=== PATIENT | male | born 1995 | race African-American/Black ===

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

== ENCOUNTER 2017-05-16 05:20 | Emergency (ER) | payer SELFPAY ==
[2017-05-16 05:38] LABS: ABSOLUTE BASOPHILS # (AUTO) 0.1 10^3/uL (0.0-0.2); ABSOLUTE LYMPHOCYTES (AUTO) 1.8 10^3/uL (0.5-4.7); ABSOLUTE MONOCYTES (AUTO) 0.4 10^3/uL (0.1-1.4); ABSOLUTE NEUT (AUTO) 3.7 10^3/uL (1.7-8.2); BASOPHILS % (AUTO) 0.9 % (0-2); EOSINOPHILS % (AUTO) 0.4 % (0-6); HEMATOCRIT 45.2 % (37.9-51.0); HEMOGLOBIN 15.9 g/dL (13.5-17.0); HGB HCT DIFFERENCE 2.5; LYMPHOCYTES % (AUTO) 29.6 % (13-45); MEAN CORPUSCULAR HEMOGLOBIN 31.1 pg (27.0-33.4); MEAN CORPUSCULAR HGB CONC 35.2 g/dL (32.0-36.0); MEAN CORPUSCULAR VOLUME 88 fl (80-97); MONOCYTES % (AUTO) 7.1 % (3-13); RED BLOOD COUNT 5.11 10^6/uL (4.35-5.55); RED CELL DISTRIBUTION WIDTH 13.4 % (11.5-14.0)
[2017-05-16 05:44] LABS: ALANINE AMINOTRANSFERASE 35 U/L (10-40); ALBUMIN 4.8 g/dL (3.7-5.6); ALKALINE PHOSPHATASE 57 U/L (65-260); ANION GAP 10 (5-19); ASPARTATE AMINO TRANSFERASE 27 U/L (10-45); BILIRUBIN,DIRECT 0.3 mg/dL (0.0-0.4); BILIRUBIN,TOTAL 1.7 mg/dL (0.2-1.3); BLOOD UREA NITROGEN 9 mg/dL (7-20); CALCIUM 10.2 mg/dL (8.4-10.2); CARBON DIOXIDE 27 mmol/L (22-30); CHLORIDE 106 mmol/L (98-107); CREATININE RESULT 0.98 mg/dL (0.52-1.25); GLUCOSE 119 mg/dL (75-110); POTASSIUM 3.8 mmol/L (3.6-5.0); SODIUM 143.2 mmol/L (137-145); TOTAL PROTEIN 7.7 g/dL (6.3-8.2)
[2017-05-16] MEDS: NORMAL SALINE 1000 ML 1,000 ML IV PRN ×2 (05:45→09:05)
[2017-05-16 05:46] LABS: ALCOHOL < 10 mg/dL (NONE DETECTED)
--- NOTE | 2017-05-16 05:48 | ER Document Report ---
Doctor's Note Notes: 05/16/17 05:46 I performed a quick triage evaluation of the patient. Patient is a 4-year-old male who presents after overdosing on tramadol and NyQuil. Report is that he took a bottle of NyQuil and took tramadol. There is a empty tramadol bottle is brought with him. The bottle initially at 30 tablets. Unclear exactly how many were in the bottle when he took them. Patient will not give any further information. Patient is somnolent but easily arousable and will talk to me but does not give any further information. Patient is protecting his airway well. Vital signs are currently stable. Blood work has been ordered. Dictation of this chart was performed using voice recognition software; therefore, there may be some unintended grammatical errors.
--- NOTE | 2017-05-16 06:38 | ER Document Report ---
ED Psych Disorder / Suicide - General Mode of Arrival: Ambulatory Information source: Patient TRAVEL OUTSIDE OF THE U.S. IN LAST 30 DAYS: No <CARMINE ALMAGUER - Last Filed: 05/16/17 11:10> <ROSA BARRY - Last Filed: 05/16/17 14:31> - General Chief Complaint: Overdose Stated Complaint: POSSIBLE OVERDOSE Time Seen by Provider: 05/16/17 06:21 Notes: Patient is a 21-year-old male who presents to the emergency department today with complaints of a suicidal attempt prior to arrival. Patient's grandma states the patient took a full 12 ounce bottle of liquid NyQuil prior to arrival. Grandma mentions that he may have taken tramadol as well as there is a prescription for x30 tramadol 50 mg at bedside that is empty. Patient states that this was his ex-girlfriend's and that he did not take any, stating that it has been empty for a week or more. Patient states he took the NyQuil around 0400 this morning and he states that the reason for taking this was "I just want to be gone". (CARMINE ALMAGUER) - Related Data Allergies/Adverse Reactions: Penicillins Allergy (Verified 05/16/17 07:16) bleach Allergy (Uncoded 04/07/17 15:54) Past Medical History - General Information source: Patient - Social History Smoking Status: Never Smoker Cigarette use (# per day): No Frequency of alcohol use: None Drug Abuse: Marijuana Lives with: Family Family History: Reviewed & Not Pertinent Patient has suicidal ideation: Yes Patient has homicidal ideation: No Psychiatric Medical History: Reports: Hx Depression Past Surgical History: Reports: Other - Facial plastic surgery - Immunizations Immunizations up to date: Yes Hx Diphtheria, Pertussis, Tetanus Vaccination: Yes <CARMINE ALMAGUER - Last Filed: 05/16/17 11:10> Review of Systems - Review of Systems Constitutional: See HPI, Other - complains of being excessively tired EENT: No symptoms reported Cardiovascular: See HPI, Lightheaded Respiratory: No symptoms reported Gastrointestinal: See HPI, Nausea Genitourinary: No symptoms reported Male Genitourinary: No symptoms reported Musculoskeletal: No symptoms reported Skin: No symptoms reported Hematologic/Lymphatic: No symptoms reported Neurological/Psychological: No symptoms reported -: Yes All other systems reviewed and negative <CARMINE ALMAGUER - Last Filed: 05/16/17 11:10> Physical Exam <CARMINE ALMAGUER - Last Filed: 05/16/17 11:10> <ROSA BARRY - Last Filed: 05/16/17 14:31> - Vital signs Vitals: Resp 18 05/16/17 05:28 - Notes Notes: Physical Exam: General: Alert, appears well. HEENT: Normocephalic. Atraumatic. PERRL. Extraocular movements intact. Oropharynx clear. Dry mucous membranes. Neck: Supple. Non-tender. Respiratory: No respiratory distress. Clear and equal breath sounds bilaterally. Cardiovascular: Regular rate and rhythm. Abdominal: Normal Inspection. Non-tender. No distension. Normal Bowel Sounds. Back: Non-tender. No deformity or step off. Extremities: Moves all four extremities. Upper extremities: Normal inspection. Normal ROM. Lower extremities: Tracking device on left ankle. No edema. Normal ROM. Neurological: Normal cognition. AAOx4. Normal speech. Psychological: Flat affect. Normal Mood. Skin: Warm. Dry. Normal color. (CARMINE ALMAGUER) Course - Laboratory Result Diagrams: 05/16/17 05:20 05/16/17 07:20 <CARMINE ALMAGUER - Last Filed: 05/16/17 11:10> - Laboratory Result Diagrams: 05/16/17 05:20 05/16/17 07:20 <ROSA BARRY - Last Filed: 05/16/17 14:31> - Re-evaluation Re-evalutation: 05/16/17 11:29 Patient was discussed with poison control regarding his Tylenol level. Initial level was 15, then 31, then 26. Patient and grandmother at adamant that the patient took the bottle of NyQuil at 3:30 in the morning. He has a text message which is showing this as proof. Per poison control, if the patient's story is reliable, there is no need for continuing medical follow-up in the patient can be medically cleared. LFTs have been normal 3. Patient will be seen by mental health for further evaluation of why he overdosed. 05/16/17 14:28 Patient has been seen by psychiatric services. Patient does not have any suicidal or homicidal ideation at this time. Concern for possible undiagnosed bipolar disorder. Patient and grandmother will contract for safety. Patient is medically and psychiatrically cleared. Involuntary commitment paperwork will be rescinded. Stable for discharge. Follow-up with [facility]. (ROSA BARRY) - Vital Signs Vital signs: Temp Pulse Resp BP Pulse Ox 97.8 F 17 136/97 H 98 05/16/17 05:42 05/16/17 13:01 05/16/17 13:01 05/16/17 13:01 - Laboratory Laboratory results interpreted by me: 05/16/17 05/16/17 05/16/17 05:20 06:25 07:20 Chloride 110 H Glucose 119 H Total Bilirubin 1.7 H 1.6 H Alkaline Phosphatase 57 L 49 L Total Protein Albumin Urine Ketones TRACE H Urine Blood SMALL H Salicylates < 1.0 L Acetaminophen 31 H 05/16/17 09:58 Chloride Glucose Total Bilirubin 1.5 H Alkaline Phosphatase 45 L Total Protein 6.0 L Albumin 3.6 L Urine Ketones Urine Blood Salicylates Acetaminophen Critical Care Note - Critical Care Note Total time excluding time spent on procedures (mins): 90 - Evaluation and management of overdose, suicidal ideation, multiple evaluations, consultation with poison control, consultation with mental health, multiple re-evaluations, counseling of patient and family <ROSA BARRY - Last Filed: 05/16/17 14:31> Discharge <CARMINE ALMAGUER - Last Filed: 05/16/17 11:10> <ROSA BARRY - Last Filed: 05/16/17 14:31> - Discharge Clinical Impression: Overdose Qualifiers: Encounter type: initial encounter Injury intent: intentional self-harm Qualified Code(s): T50.902A - Poisoning by unspecified drugs, medicaments and biological substances, intentional self-harm, initial encounter Depression Qualifiers: Depression Type: unspecified Qualified Code(s): F32.9 - Major depressive disorder, single episode, unspecified Condition: Stable Disposition: HOME, SELF-CARE Instructions: Depression ([facility]), Instructions for Home Care Following a Drug Overdose ([facility]) Additional Instructions: Please follow-up with the counselor as directed. Please return if you have any further concerns. Prescriptions: Benztropine Mesylate 1 mg PO DAILY #7 tablet Olanzapine [Zyprexa 5 mg Tablet] 5 mg PO Q12 #14 tablet Referrals: [facility] [Outside] - Follow up in 3-5 days Scribe Attestation: 05/16/17 14:31 I personally performed the services described in the documentation, reviewed and edited the documentation which was dictated to the scribe in my presence, and it accurately records my words and actions. (ROSA BARRY) Scribe Documentation - Scribe Written by [employer]:: Kandy Pak, 05/16/2017 0712 acting as scribe for :: Cecilia <CARMINE ALMAGUER - Last Filed: 05/16/17 11:10>
[2017-05-16 06:52] LABS: APPEARANCE,URINE CLEAR; BILIRUBIN,URINE NEGATIVE (NEGATIVE); GLUCOSE, URINE NEGATIVE (NEGATIVE); KETONES,URINE TRACE mg/dL (NEGATIVE); LEUKOCYTE ESTERASE,URINE NEGATIVE (NEGATIVE); NITRITE,URINE NEGATIVE (NEGATIVE); PROTEIN,URINE NEGATIVE (NEGATIVE); URINE SPECIFIC GRAVITY 1.017; UROBILINOGEN,URINE NEGATIVE mg/dL (<2.0)
[2017-05-16 07:11] LABS: URINE BARBITURATES SCREEN NEGATIVE; URINE METHADONE SCREEN NEGATIVE; URINE OPIATES LOW NEGATIVE; URINE PHENCYCLIDINE SCREEN NEGATIVE
--- NOTE | 2017-05-16 07:36 | EKG REPORT ---
SEVERITY:- NORMAL ECG - SINUS RHYTHM : Confirmed by: Eric Hogan 16-May-2017 07:35:13
[2017-05-16 07:58] LABS: ALANINE AMINOTRANSFERASE 36 U/L (10-40); ALBUMIN 4.3 g/dL (3.7-5.6); ALKALINE PHOSPHATASE 49 U/L (65-260); ANION GAP 12 (5-19); ASPARTATE AMINO TRANSFERASE 25 U/L (10-45); BILIRUBIN,DIRECT 0.3 mg/dL (0.0-0.4); BILIRUBIN,TOTAL 1.6 mg/dL (0.2-1.3); BLOOD UREA NITROGEN 7 mg/dL (7-20); CALCIUM 9.7 mg/dL (8.4-10.2); CARBON DIOXIDE 23 mmol/L (22-30); CHLORIDE 110 mmol/L (98-107); CREATININE RESULT 0.81 mg/dL (0.52-1.25); GLUCOSE 103 mg/dL (75-110); SODIUM 144.7 mmol/L (137-145)
--- NOTE | 2017-05-16 10:04 | PSYCHOLOGICAL NOTE ---
Psych Note - Psych Note Psych Note: pt brought in per ems for drinking entire bottle of nyquil and an unknown quanity of tramadol. grandmother states issues with girlfriend. grandmother states pt has not done this before. grandmother notes this was intentional. pt is responsive to pain but will at times open eyes and ask for girlfriend. pt has a house arrest anklet on. pt on monitor. grandmother notes pt smoked marijuanna today Patient disclosed that he arrived to [facility] via EMS however disclosed that he does not remember arriving. Patient does report he knows that he attempted to kill himself. Patient reports that he "drank a whole bottle of NyQuil but that it was not enough... Clearly." Patient states that he "would rather be right now because she still will not talk to me." He reports that his girlfriend broke up with him because "I messed up... I cheated on her... I just want to fix it... There is no reason to live, I cannot fix it." He reports a history of cutting when he was 15 years old however he did stop and has not cut since. Patient has no history of suicide attempts. He does have an IEP through his school that has identified with emotional disorder however does not receive any psychiatric services. Patient is semi-alert and orientated to person, place, time and circumstance. Mood is dysphoric with flat affect. Patient endorses suicidal ideation with attempt. Patient drank a bottle of NyQuil and discloses being upset that did not work. Patient denies homicidal ideation. Patient denies auditory visual hallucinations. Delusions are absent and behaviors congruent with intact reality based presentation i.e. organized, linear, rational thinking. Eye contact is poor. Conversational speech was low and difficult to hear at times. Intellectual abilities appear to be within the average range. Attention and concentration are fair. Insight, judgment, impulse control are poor. 311 (F32.9) unspecified depressive disorder V15.59 (Z91.5) personal history of cutting; 5 years previous no new events Impression\\plan: Patient is recommended for IVC. Patient attempted suicide by drinking a bottle of NyQuil. Patient continues to state that he is upset that it did not work that he would rather be . Patient is a danger to himself. He is currently not medically cleared; patient will be reevaluated. Dr. Segura was consulted and the care and management of this patient; attending physician is agreement with her conditions and disposition.
[2017-05-16 10:29] LABS: ALANINE AMINOTRANSFERASE 36 U/L (10-40); ALBUMIN 3.6 g/dL (3.7-5.6); ALKALINE PHOSPHATASE 45 U/L (65-260); ASPARTATE AMINO TRANSFERASE 21 U/L (10-45); BILIRUBIN,DIRECT 0.2 mg/dL (0.0-0.4); BILIRUBIN,TOTAL 1.5 mg/dL (0.2-1.3)
--- NOTE | 2017-05-16 13:53 | ER Document Report ---
Doctor's Note Notes: 05/16/17 13:52 Rounds: Chart reviewed and patient interviewed earlier this morning. Easily awakens. Vital signs are all normal. Lab studies are essentially normal. Patient appears to be medically stable for transfer or discharge. Ana Ivey MD
[2017-05-16 14:38] VITALS: BP 119/57
== END 2017-05-16 14:50 | disposition home or self-care (01) ==
LOC: ER 05:20
DX: T48.4X2A Poisoning by expectorants, intentional self-harm, initial encounter (principal); R42 Dizziness and giddiness; R11.0 Nausea; R53.83 Other fatigue; F32.9 Major depressive disorder, single episode, unspecified; Z88.0 Allergy status to penicillin; Z91.048 Other nonmedicinal substance allergy status
CPT/HCPCS: 93005; 99291; 99292; 96360; 36415; 80307 ×4; 85025; 80076; 80053; 81001; 93010; J7030

== ENCOUNTER 2017-05-19 18:54 | Emergency (ER) | payer SELFPAY ==
--- NOTE | 2017-05-19 19:46 | ER Document Report ---
ED Medical Screen (RME) - General Chief Complaint: Head Injury with LOC Stated Complaint: FALL/HEAD INJURY Time Seen by Provider: 05/19/17 19:41 Notes: 21-year-old male patient reports he is playing basketball, went up to 100 on the ball to short gut and on room swelling under fell down and struck his occipital skull on concrete with loss of consciousness. States he has been in and out of consciousness. Has abrasion possible laceration. He was here 3 days ago on IVC for overdose suicidal ideation and discharged on Zyprexa. I have greeted and performed a rapid initial assessment of this patient. A comprehensive ED assessment and evaluation of the patient, analysis of test results and completion of the medical decision making process will be conducted by additional ED providers. TRAVEL OUTSIDE OF THE [place]. IN LAST 30 DAYS: No - Related Data Allergies/Adverse Reactions: Penicillins Allergy (Verified 05/19/17 19:41) bleach Allergy (Uncoded 05/19/17 18:56) Home Medications: Current Home Medications No Home Medications 05/19/17 [History] Past Medical History Renal/ Medical History: Denies: Hx Peritoneal Dialysis Psychiatric Medical History: Reports: Hx Depression Past Surgical History: Reports: Other - Facial plastic surgery - Immunizations Immunizations up to date: Yes Hx Diphtheria, Pertussis, Tetanus Vaccination: Yes Physical Exam - Vital signs Vitals: Temp Pulse Resp BP Pulse Ox 98.8 F 65 16 130/79 H 98 05/19/17 19:26 05/19/17 19:26 05/19/17 19:26 05/19/17 19:26 05/19/17 19:26 Course - Vital Signs Vital signs: Temp Pulse Resp BP Pulse Ox 98.8 F 65 16 130/79 H 98 05/19/17 19:26 05/19/17 19:26 05/19/17 19:26 05/19/17 19:26 05/19/17 19:26
--- NOTE | 2017-05-19 20:10 | RADIOLOGY REPORT (SQ) ---
EXAM DESCRIPTION: CT HEAD WITHOUT COMPLETED DATE/TIME: 05/19/2017 7:53 pm REASON FOR STUDY: Hit head on concrete with LOC COMPARISON: None. TECHNIQUE: Axial images acquired through the brain without intravenous contrast. Images reviewed wi th bone, brain and subdural windows. Images stored on PACS. All CT scanners at this facility use dose modulation, iterative reconstruction, and/or weight based d osing when appropriate to reduce radiation dose to as low as reasonably achievable (ALARA). [facility]: Dose Right [facility]: CareDose [facility]: Dose Right [facility]: Teradose 4D [facility]: Smart [employer] RADIATION DOSE: CT Rad equipment meets quality standard of care and radiation dose reduction techniq ues were employed. CTDIvol: 64.6 mGy. DLP: 1292 mGy-cm. mGy. LIMITATIONS: None. FINDINGS: VENTRICLES: Normal size and contour. CEREBRUM: No masses. Linear density in the right middle cranial fossa is probably an incidental prom inent draining vein. No suggestion of hemorrhage. No midline shift. No evidence for acute infarcti on. Normal boudreaux/white matter differentiation. No areas of low density in the white matter. CEREBELLUM: No masses. No hemorrhage. No alteration of density. No evidence for acute infarction. EXTRAAXIAL SPACES: No fluid collections. No masses. ORBITS AND GLOBE: No intra- or extraconal masses. Normal contour of globe without masses. CALVARIUM: No fracture. PARANASAL SINUSES: No fluid or mucosal thickening. SOFT TISSUES: Mild soft tissue swelling over the vertex of the scalp posteriorly. Presumably related to direct trauma. No significant drainable hematoma or foreign body. OTHER: No other significant finding. IMPRESSION: No acute intracranial abnormality. EVIDENCE OF ACUTE STROKE: NO. COMMENT: Quality ID # [id number]: Final reports with documentation of one or more dose reduction techniques (e.g., Automated exposure control, adjustment of the mA and/or kV according to patient size, use of iterative reconstruction technique) TECHNICAL DOCUMENTATION: JOB ID: [id number] [employer]- All Rights Reserved
--- NOTE | 2017-05-19 20:47 | ER Document Report ---
ED General - General Chief Complaint: Head Injury with LOC Stated Complaint: FALL/HEAD INJURY Time Seen by Provider: 05/19/17 19:41 Mode of Arrival: Ambulatory Information source: Patient Notes: 21-year-old male who was playing basketball and fell striking the back of his head just prior to arrival presents with complaints of abrasion. Patient denies any neurological deficits however initial complaint noted loss of consciousness with intermittent confusion but patient and girlfriend notes that symptoms have since resolved TRAVEL OUTSIDE OF THE [place]. IN LAST 30 DAYS: No - HPI Onset: Other - 5:00 Onset/Duration: Sudden Quality of pain: Achy Severity: Mild Pain Level: 1 Associated symptoms: Other Exacerbated by: Denies Relieved by: Denies Similar symptoms previously: No Recently seen / treated by doctor: Yes - Related Data Allergies/Adverse Reactions: Penicillins Allergy (Verified 05/19/17 19:41) bleach Allergy (Uncoded 05/19/17 18:56) Home Medications: Current Home Medications No Home Medications 05/19/17 [History] Past Medical History - Social History Smoking Status: Never Smoker Cigarette use (# per day): No Chew tobacco use (# tins/day): No Smoking Education Provided: No Family History: Reviewed & Not Pertinent Patient has suicidal ideation: No Patient has homicidal ideation: No Renal/ Medical History: Denies: Hx Peritoneal Dialysis Psychiatric Medical History: Reports: Hx Depression Past Surgical History: Reports: Other - Facial plastic surgery - Immunizations Immunizations up to date: Yes Hx Diphtheria, Pertussis, Tetanus Vaccination: Yes Review of Systems - Review of Systems Notes: REVIEW OF SYSTEMS: CONSTITUTIONAL : Denies fever, chills, or sweats. Denies recent illness. EENT: Denies eye, ear, throat, or mouth pain or symptoms. Denies nasal or sinus congestion or discharge. Denies throat, tongue, or mouth swelling or difficulty swallowing. CARDIOVASCULAR: Denies chest pain. Denies palpitations or racing or irregular heart beat. Denies ankle edema. RESPIRATORY: Denies cough, cold, or chest congestion. Denies shortness of breath, difficulty breathing, or wheezing. GASTROINTESTINAL: Denies abdominal pain or distention. Denies nausea, vomiting , or diarrhea. Denies blood in vomitus, stools, or per rectum. Denies black, tarry stools. Denies constipation. GENITOURINARY: Denies difficulty urinating, painful urination, burning, frequency, blood in urine, or discharge. MUSCULOSKELETAL: Denies back or neck pain or stiffness. Denies joint pain or swelling. SKIN: bleeding from scalp HEMATOLOGIC : Denies easy bruising or bleeding. LYMPHATIC: Denies swollen, enlarged glands. NEUROLOGICAL: Initially admitted to loss of consciousness and going in and out of consciousness currently asymptomatic, admits ot head injury PSYCHIATRIC: Denies anxiety or stress. Denies depression, suicidal ideation, or homicidal ideation. ALL OTHER SYSTEMS REVIEWED AND NEGATIVE. Dictation was performed using [employer] voice recognition software PHYSICAL EXAMINATION: GENERAL: Well-appearing, well-nourished and in no acute distress. HEAD: mid occipital EYES: Pupils equal round and reactive to light, extraocular movements intact, sclera anicteric, conjunctiva are normal. ENT: Nares patent, oropharynx clear without exudates. Moist mucous membranes. NECK: Normal range of motion, supple without lymphadenopathy LUNGS: Breath sounds clear to auscultation bilaterally and equal. No wheezes rales or rhonchi. HEART: Regular rate and rhythm without murmurs ABDOMEN: Soft, nontender, nondistended abdomen. No guarding, no rebound. No masses appreciated. Musculoskeletal: Normal range of motion, no pitting or edema. No cyanosis. NEUROLOGICAL: Cranial nerves grossly intact. Normal speech, normal gait. Normal sensory, motor exams PSYCH: Normal mood, normal affect. SKIN: Warm, Dry, normal turgor, no rashes or lesions noted. Physical Exam - Vital signs Vitals: Temp Pulse Resp BP Pulse Ox 98.8 F 65 16 130/79 H 98 05/19/17 19:26 05/19/17 19:26 05/19/17 19:26 05/19/17 19:26 05/19/17 19:26 Course - Vital Signs Vital signs: Temp Pulse Resp BP Pulse Ox 98.8 F 65 16 130/79 H 98 05/19/17 19:26 05/19/17 19:26 05/19/17 19:26 05/19/17 19:26 05/19/17 19:26 Discharge - Discharge Clinical Impression: Head injury due to trauma, Scalp abrasion Condition: Stable Disposition: HOME, SELF-CARE Instructions: Abrasions ([facility]), Concussion ([facility]) Additional Instructions: Follow up with your physician tomorrow for further care or return to the ED IMMEDIATELY if symptoms worsen or new concerns occur. If you cannot afford to follow up with your primary care physician a list of low cost clinics have been provided at the end of your discharge papers as well. Forms: Return to Work
[2017-05-19] MEDS ORDERED: ACETAMINOPHEN 325 MG TABLET PO ONE (21:08)
[2017-05-19 21:16] VITALS: BP 128/91
== END 2017-05-19 21:14 | disposition home or self-care (01) ==
LOC: ER 18:54
DX: S06.9X9A Unspecified intracranial injury with loss of consciousness of unspecified duration, initial encounter (principal); W19.XXXA Unspecified fall, initial encounter; Y93.67 Activity, basketball; Z88.0 Allergy status to penicillin; Z91.048 Other nonmedicinal substance allergy status
CPT/HCPCS: 70450; 99284

== ENCOUNTER 2017-08-16 14:37 | Emergency (ER) | payer SELFPAY ==
[2017-08-16 14:42] VITALS: BP 131/77
[2017-08-16] MEDS ORDERED: ACETAMINOPHEN 325 MG TABLET PO ONE (14:53)
[2017-08-16] MEDS ORDERED: ONDANSETRON 4 MG TAB.RAPDIS PO ONE (14:53)
[2017-08-16] MEDS ORDERED: DEXAMETHASONE SOD PHOS INJ 10 MG/1 ML VIAL IM ONE (14:55)
--- NOTE | 2017-08-16 14:56 | ER Document Report ---
HPI - HPI Pain Level: 4 Notes: Patient is a 21-year-old male with no significant past medical history who presents to the ED complaining of feverish, sore throat, nausea, and vomiting 2 days. Patient states that he vomited 1-2 times yesterday and twice this morning because of the nausea. Patient states that he did take aspirin about an hour before he came. He is otherwise eating and drinking without any difficulties, but does have a decreased p.o. intake due to discomfort with swallowing. He is urinating normally and having normal bowel movements. Denies any drug allergies. Patient does admit to smoking but denies IV drug use. No other concerns or complaints today. Denies any headache, neck pain, URI, chest pain, palpitations, syncope, cough, shortness of breath, wheeze, dyspnea, abdominal pain, diarrhea, urinary retention, dysuria, hematuria, loss of control of bowel or bladder, numbness/tingling, saddle anesthesia, muscle paralysis/weakness, or rash. - ROS Systems Reviewed and Negative: Yes All other systems reviewed and negative Past Medical History - Social History Smoking Status: Current Every Day Smoker Family History: Reviewed & Not Pertinent Renal/ Medical History: Denies: Hx Peritoneal Dialysis Psychiatric Medical History: Reports: Hx Depression Past Surgical History: Reports: Other - Facial plastic surgery - Immunizations Immunizations up to date: Yes Hx Diphtheria, Pertussis, Tetanus Vaccination: Yes Vertical Provider Document - CONSTITUTIONAL Agree With Documented VS: Yes Notes: PHYSICAL EXAMINATION: GENERAL: Well-appearing, well-nourished and in no acute distress. A&Ox4. Answers questions appropriately. Moves comfortably w/o notable distress HEAD: Atraumatic, normocephalic. EYES: Pupils equal round and reactive to light, extraocular movements intact, sclera anicteric, conjunctiva are normal. ENT: EAC clear b/l. TM's intact b/l without erythema, fluid, or perforation. Nares patent and without discharge. oropharynx mild erythema without exudates. 2+ tonsilar hypertrophy with erythema and exudate. No palatine shift. Uvula midline. No tongue protrusion. No drooling, hoarseness, or airway compromise. Moist mucous membranes. No sinus tenderness. NECK: Normal range of motion, supple without lymphadenopathy. No rigidity/ meningismus. LUNGS: Breath sounds clear to auscultation bilaterally and equal. No wheezes rales or rhonchi. No retractions HEART: Regular rate and rhythm without murmurs, rubs, gallops. ABDOMEN: Soft, nontender, nondistended abdomen. No guarding, no rebound. No masses appreciated. Normal bowel sounds present. No CVA tenderness bilaterally. No hepatosplenomegaly. NEUROLOGICAL: Normal speech, normal gait. Normal sensory, motor exams PSYCH: Normal mood, normal affect. SKIN: Warm, Dry, normal turgor, no rashes or lesions noted. - INFECTION CONTROL TRAVEL OUTSIDE OF THE [place] IN LAST 30 DAYS: No - RESPIRATORY O2 Sat by Pulse Oximetry: 100 Course - Re-evaluation Re-evalutation: 08/16/17 15:18 Patient is an afebrile, well-hydrated, 21-year-old male who presents to the ED with acute pharyngitis, suspect viral. Vitals are acceptable. PE is otherwise unremarkable. Rapid strep was neg with a throat culture pending. No other labs or imaging warranted at this time based on H&P. Patient was given Tylenol and Zofran p.o. as well as Decadron 10 mg IM. Patient is able to tolerate p.o. without any difficulties. Low suspicion for any meningitis, sepsis, peritonsillar/pharyngeal abscess, respiratory compromise, Alejo's, or other emergent systemic condition at this time. Patient is aware this condition can change from initial presentation and he needs to monitor symptoms closely. Conservative measures otherwise for symptoms. Recheck with your PCM in 2-3 days. Return to the ED with any worsening/concerning symptoms otherwise as reviewed in discharge. Patient is in agreement. - Vital Signs Vital signs: Temp Pulse Resp BP Pulse Ox 100.2 F 90 18 131/77 H 100 08/16/17 14:41 08/16/17 14:41 08/16/17 14:41 08/16/17 14:41 08/16/17 14:41 Discharge - Discharge Clinical Impression: Acute pharyngitis Qualifiers: Pharyngitis/tonsillitis etiology: unspecified etiology Qualified Code(s): J02.9 - Acute pharyngitis, unspecified Condition: Stable Disposition: HOME, SELF-CARE Instructions: Sore Throat ([facility]) Additional Instructions: Maintain adequate fluid intake Take meds as directed Salt water gargles, throat sprays, mouthwash rinse, peroxide gargles tylenol/ibuprofen as needed New toothbrush tomorrow evening over the counter cold medication as needed for symptoms F/u: with your PCM in 2-3 days for a recheck Consider consult with ENT for ongoing/worsening symptoms Return to the ED with any fever, worsening pain, chest pain, neck pain/stiffness , shortness of breath, cough, drooling, trouble swallowing/breathing, abdominal pain, n/v/d, rash, or worsening/concerning symptoms otherwise. Forms: Elevated Blood Pressure, Smoking Cessation Education Referrals: TAMIE AVERY DO [ASSOCIATE] - Follow up as needed
[2017-08-16] MEDS ORDERED: ONDANSETRON ODT 4 MG TAB (6 TAB/ER DISP) PO PRN (15:20)
== END 2017-08-16 15:20 | disposition home or self-care (01) ==
LOC: ER 14:37
DX: J02.9 Acute pharyngitis, unspecified (principal); J35.1 Hypertrophy of tonsils; R11.2 Nausea with vomiting, unspecified; F17.200 Nicotine dependence, unspecified, uncomplicated
CPT/HCPCS: 99283; 96372; 87070; 87880; 87077; S0119; J1100

== ENCOUNTER 2017-09-17 04:34 | Emergency (ER) | payer SELFPAY ==
[2017-09-17 04:46] VITALS: BP 116/82
[2017-09-17] MEDS ORDERED: PENICILLIN V POTASSIUM 500 MG TABLET PO ONE (05:03)
[2017-09-17] MEDS ORDERED: IBUPROFEN 800 MG TABLET PO ONE (05:03)
--- NOTE | 2017-09-17 05:03 | ER Document Report ---
HPI - HPI Patient complains to provider of: Sore throat Onset: Yesterday - Evening at 10:00 Onset/Duration: Gradual Quality of pain: Achy, Sharp Pain Level: 4 Context: 21-year-old male complaining of sore throat, odynophagia since 10:00 last night. No fever or chills. No runny nose or cough. States he woke up with a swollen tongue. No known allergies to medications. No chest pain or shortness of breath. No abdominal pain. No nausea vomiting or diarrhea. Rash. Associated Symptoms: None Exacerbated by: Other - Swallowing Relieved by: Denies Similar symptoms previously: No Recently seen / treated by doctor: No - ROS ROS below otherwise negative: Yes Systems Reviewed and Negative: Yes All other systems reviewed and negative Past Medical History - General Information source: Patient - Social History Smoking Status: Current Every Day Smoker Frequency of alcohol use: None Drug Abuse: None Lives with: Family Family History: Reviewed & Not Pertinent Renal/ Medical History: Denies: Hx Peritoneal Dialysis Psychiatric Medical History: Reports: Hx Depression Surgical Hx: Negative Past Surgical History: Reports: Other - Facial plastic surgery - Immunizations Immunizations up to date: Yes Hx Diphtheria, Pertussis, Tetanus Vaccination: Yes Vertical Provider Document - CONSTITUTIONAL Agree With Documented VS: Yes Exam Limitations: No Limitations General Appearance: No Apparent Distress - INFECTION CONTROL TRAVEL OUTSIDE OF THE [place] IN LAST 30 DAYS: No - HEENT HEENT: Normocephalic, Pharyngeal Erythema. negative: Conjuctival Injection, Tympanic Membrane Red - NECK Neck: Supple. negative: Lymphadenopathy-Left, Lymphadenopathy-Right - RESPIRATORY Respiratory: Breath Sounds Normal, No Respiratory Distress - CARDIOVASCULAR Cardiovascular: Regular Rate, Regular Rhythm - GI/ABDOMEN Gastrointestinal: Abdomen Soft, Abdomen Non-Tender - MUSCULOSKELETAL/EXTREMETIES Musculoskeletal/Extremeties: MAEW - NEURO Level of Consciousness: Awake, Alert Course - Vital Signs Vital signs: Temp Pulse Resp BP Pulse Ox 97.5 F 68 18 116/82 100 09/17/17 04:35 09/17/17 04:35 09/17/17 04:35 09/17/17 04:35 09/17/17 04:35 Discharge - Discharge Clinical Impression: Sore throat Condition: Good Disposition: HOME, SELF-CARE Instructions: Penicillin V K ([facility]), Sore Throat ([facility]) Additional Instructions: Plenty of fluids Tylenol Motrin Penicillin until it is gone Return to the emergency room any worsening of the symptoms Prescriptions: Ibuprofen [Motrin 800 mg Tablet] 800 mg PO Q8HP PRN #30 tablet PRN Reason: Penicillin V Potassium [Penicillin Vk 500 mg Tablet] 500 mg PO QID #40 tablet Forms: Return to Work, Return to School
== END 2017-09-17 05:25 | disposition home or self-care (01) ==
LOC: ER 04:34
DX: J02.9 Acute pharyngitis, unspecified (principal); R13.10 Dysphagia, unspecified; F17.200 Nicotine dependence, unspecified, uncomplicated
CPT/HCPCS: 99282

== ENCOUNTER → 2017-09-27 | Outpatient (CLI) | payer MEDICAID ==
[2017-09-27 19:42] LABS: CHLAM PCR NOT DETECTED (NOT DETECT); GON PCR NOT DETECTED (NOT DETECT)
== END ==
LOC: OD 14:30
PROVIDERS: ATTEND Nurse Practitioner Acute Care
DX: R36.9 Urethral discharge, unspecified (principal)
CPT/HCPCS: 87491; 87591

== ENCOUNTER 2017-11-14 16:11 | Emergency (ER) | payer SELFPAY ==
[2017-11-14] MEDS ORDERED: FENTANYL CITRATE INJ/PF 100 MCG/2 ML AMPUL IM ONE (16:31)
[2017-11-14] MEDS ORDERED: ONDANSETRON 4 MG TAB.RAPDIS PO ONE (16:31)
[2017-11-14] MEDS ORDERED: DIAZEPAM 5 MG TABLET PO ONE (16:32)
[2017-11-14] MEDS ORDERED: ACETAMINOPHEN 325 MG TABLET PO ONE (16:32)
--- NOTE | 2017-11-14 16:34 | ER Document Report ---
ED Medical Screen (RME) - General Chief Complaint: Headache Stated Complaint: HEADACHE/NECK AND BACK PAIN Time Seen by Provider: 11/14/17 16:30 Notes: RAPID MEDICAL EVALUATION DISCLOSURE I have seen this patient as part of a Rapid Medical Evaluation and, if applicable, placed any initially appropriate orders. The patient will be seen and fully evaluated, including a full history and physical exam, by a provider ( in Main ED or Fast Track) when a room becomes available. 21-year-old male here with complaints of headache ongoing for the past 1 week and since last night severe "spine pain" flank pain nausea diarrhea abdominal pain cough. The spine pain is worse with sitting straight upright. He has not had any dysuria hematuria. He denies any heavy lifting or traumatic impact. Exam Patient is crying hysterically in pain No appreciable abdominal TTP Moderate paraspinal muscle TTP in the thoracic and lumbar region TRAVEL OUTSIDE OF THE [place] IN LAST 30 DAYS: No - Related Data Allergies/Adverse Reactions: bleach Allergy (Uncoded 11/14/17 16:13) Past Medical History - Social History Chew tobacco use (# tins/day): - 2 Frequency of alcohol use: None Drug Abuse: None Renal/ Medical History: Denies: Hx Peritoneal Dialysis Psychiatric Medical History: Reports: Hx Depression Past Surgical History: Reports: Other - Facial plastic surgery - Immunizations Immunizations up to date: Yes Hx Diphtheria, Pertussis, Tetanus Vaccination: Yes Physical Exam - Vital signs Vitals: Temp Pulse Resp BP Pulse Ox 100.2 F 92 H 20 134/88 H 98 11/14/17 16:17 11/14/17 16:17 11/14/17 16:17 11/14/17 16:17 11/14/17 16:17 Course - Vital Signs Vital signs: Temp Pulse Resp BP Pulse Ox 100.2 F 92 H 20 134/88 H 98 11/14/17 16:17 11/14/17 16:17 11/14/17 16:17 11/14/17 16:17 11/14/17 16:17 Doctor's Discharge - Discharge Referrals: ALFA ESPITIA, GRAPHICS EDITOR [Primary Care Provider] - Follow up as needed
[2017-11-14 16:58] LABS: ABSOLUTE LYMPHOCYTES (AUTO) 0.7 10^3/uL (0.5-4.7); ABSOLUTE MONOCYTES (AUTO) 0.5 10^3/uL (0.1-1.4); ABSOLUTE NEUT (AUTO) 7.9 10^3/uL (1.7-8.2); BASOPHILS % (AUTO) 0.5 % (0-2); EOSINOPHILS % (AUTO) 0.2 % (0-6); HEMATOCRIT 49.9 % (37.9-51.0); HEMOGLOBIN 17.3 g/dL (13.5-17.0); LYMPHOCYTES % (AUTO) 8.1 % (13-45); MEAN CORPUSCULAR HEMOGLOBIN 31.1 pg (27.0-33.4); MEAN CORPUSCULAR HGB CONC 34.7 g/dL (32.0-36.0); MEAN CORPUSCULAR VOLUME 90 fl (80-97); MONOCYTES % (AUTO) 5.8 % (3-13); PLATELET COUNT 241 10^3/uL (150-450); RED BLOOD COUNT 5.57 10^6/uL (4.35-5.55); RED CELL DISTRIBUTION WIDTH 14.3 % (11.5-14.0); SEGMENTED NEUTROPHILS % (AUTO) 85.4 % (42-78); TOTAL CELLS COUNTED % (AUTO) 100 %; WHITE BLOOD COUNT 9.3 10^3/uL (4.0-10.5)
[2017-11-14 17:03] LABS: APPEARANCE,URINE CLEAR; BILIRUBIN,URINE NEGATIVE (NEGATIVE); COLOR,URINE YELLOW; GLUCOSE, URINE NEGATIVE (NEGATIVE); KETONES,URINE NEGATIVE (NEGATIVE); LEUKOCYTE ESTERASE,URINE NEGATIVE (NEGATIVE); NITRITE,URINE NEGATIVE (NEGATIVE); PROTEIN,URINE NEGATIVE (NEGATIVE); URINE SPECIFIC GRAVITY 1.032
[2017-11-14 17:24] LABS: ALANINE AMINOTRANSFERASE 25 U/L (10-40); ALKALINE PHOSPHATASE 53 U/L (65-260); ANION GAP 15 (5-19); ASPARTATE AMINO TRANSFERASE 26 U/L (10-45); BILIRUBIN,DIRECT 0.2 mg/dL (0.0-0.4); BILIRUBIN,TOTAL 1.9 mg/dL (0.2-1.3); BLOOD UREA NITROGEN 13 mg/dL (7-20); CALCIUM 10.7 mg/dL (8.4-10.2); CARBON DIOXIDE 27 mmol/L (22-30); CHLORIDE 103 mmol/L (98-107); GLUCOSE 106 mg/dL (75-110); LIPASE 145.1 U/L (23-300); POTASSIUM 4.9 mmol/L (3.6-5.0); SODIUM 145.1 mmol/L (137-145)
--- NOTE | 2017-11-14 17:34 | RADIOLOGY REPORT (SQ) ---
EXAM DESCRIPTION: ACUTE ABDOMEN SERIES COMPLETED DATE/TIME: 11/14/2017 5:13 pm REASON FOR STUDY: cough abd pain diarrhea COMPARISON: None. NUMBER OF VIEWS: Three views. TECHNIQUE: Frontal chest, supine abdomen and upright/ abdomen radiographic images acquired. LIMITATIONS: None. FINDINGS: CHEST: Lungs clear of infiltrates. FREE AIR: None. No abnormal gas collections. BOWEL GAS PATTERN: Nonobstructive pattern. No dilated loops or air fluid levels. CALCIFICATIONS: No suspicious calcifications. HARDWARE: None in the abdomen. SOFT TISSUES: No gross mass or suggestion of organomegaly. BONES: No acute fracture. No worrisome bone lesions. OTHER: No other significant finding. IMPRESSION: NO RADIOGRAPHIC EVIDENCE FOR ACUTE ABDOMINAL DISEASE. TECHNICAL DOCUMENTATION: JOB ID: [id number] [employer]- All Rights Reserved Reading location - IP/workstation name: [email or web address]
--- NOTE | 2017-11-14 18:52 | RADIOLOGY REPORT (SQ) ---
EXAM DESCRIPTION: CT HEAD WITHOUT COMPLETED DATE/TIME: 11/14/2017 6:16 pm REASON FOR STUDY: headache COMPARISON: 05/19/2017 TECHNIQUE: Axial images acquired through the brain without intravenous contrast. Images reviewed wi th bone, brain and subdural windows. Images stored on PACS. All CT scanners at this facility use dose modulation, iterative reconstruction, and/or weight based d osing when appropriate to reduce radiation dose to as low as reasonably achievable (ALARA). [facility]: Dose Right [facility]: CareDose [facility]: Dose Right [facility]: Teradose 4D [facility]: Smart Curvo RADIATION DOSE: CT Rad equipment meets quality standard of care and radiation dose reduction techniq ues were employed. CTDIvol: 53.2 mGy. DLP: 937 mGy-cm. mGy. LIMITATIONS: None. FINDINGS: VENTRICLES: Normal size and contour. CEREBRUM: No masses. No hemorrhage. No midline shift. No evidence for acute infarction. Normal gra y/white matter differentiation. No areas of low density in the white matter. CEREBELLUM: No masses. No hemorrhage. No alteration of density. No evidence for acute infarction. EXTRAAXIAL SPACES: No fluid collections. No masses. ORBITS AND GLOBE: No intra- or extraconal masses. Normal contour of globe without masses. CALVARIUM: No fracture. PARANASAL SINUSES: No fluid or mucosal thickening. SOFT TISSUES: No mass or hematoma. OTHER: No other significant finding. IMPRESSION: No acute intracranial findings. EVIDENCE OF ACUTE STROKE: NO. COMMENT: Quality ID # [id number]: Final reports with documentation of one or more dose reduction techniques (e.g., Automated exposure control, adjustment of the mA and/or kV according to patient size, use of iterative reconstruction technique) TECHNICAL DOCUMENTATION: JOB ID: [id number] [place]-[id number] 2010 [employer]- All Rights Reserved Reading location - IP/workstation name: [email or web address]
[2017-11-14] MEDS ORDERED: LIDOCAINE 1% INJ-PF (10 MG/ML) 30 ML SDV INJ ONE (19:56)
[2017-11-14] MEDS ORDERED: FENTANYL CITRATE INJ/PF 100 MCG/2 ML AMPUL IV ONE (19:56)
[2017-11-14] MEDS ORDERED: MIDAZOLAM 2 MG/2 ML INJ IV ONE (19:56)
[2017-11-14 19:59] LABS: CHLAM PCR NOT DETECTED (NOT DETECT); GON PCR NOT DETECTED (NOT DETECT)
[2017-11-14 21:32] LABS: APPEARANCE ALL TUBES CLEAR; COLOR ALL TUBES COLORLESS; CSF TUBE NUMBER 1
[2017-11-14 21:33] LABS: RED BLOOD CELL,CSF 7 /uL (0-10); WHITE BLOOD CELL,CSF 3 /uL (0-5)
[2017-11-14 21:34] LABS: APPEARANCE ALL TUBES CLEAR; COLOR ALL TUBES COLORLESS; CSF TUBE NUMBER 4; RED BLOOD CELL,CSF 0 /uL (0-10)
[2017-11-14 21:35] LABS: WHITE BLOOD CELL,CSF 0 /uL (0-5)
--- NOTE | 2017-11-14 21:43 | ER Document Report ---
ED General - General Chief Complaint: Headache Stated Complaint: HEADACHE/NECK AND BACK PAIN Time Seen by Provider: 11/14/17 16:30 Mode of Arrival: Ambulatory Information source: Patient Notes: 21-year-old male presents with 5 day duration of body aches neck pain headache and noted feeling warm last night. Patient did not take his temperature. Patient denies any previous similar episodes denies any sick contacts notes immunizations up-to-date. Patient denies any confusion weakness TRAVEL OUTSIDE OF THE [place] IN LAST 30 DAYS: No - HPI Onset: Last week Onset/Duration: Persistent Quality of pain: Achy Severity: Moderate Pain Level: 2 Associated symptoms: Body/muscle aches, Fever, Headache Exacerbated by: Denies Relieved by: Denies Similar symptoms previously: No Recently seen / treated by doctor: No - Related Data Allergies/Adverse Reactions: bleach Allergy (Uncoded 11/14/17 16:13) Past Medical History - Social History Smoking Status: Current Every Day Smoker Cigarette use (# per day): Yes Chew tobacco use (# tins/day): No - 2 Smoking Education Provided: No Frequency of alcohol use: None Drug Abuse: None Family History: Reviewed & Not Pertinent Patient has suicidal ideation: No Patient has homicidal ideation: No Renal/ Medical History: Denies: Hx Peritoneal Dialysis Psychiatric Medical History: Reports: Hx Depression Past Surgical History: Reports: Other - Facial plastic surgery - Immunizations Immunizations up to date: Yes Hx Diphtheria, Pertussis, Tetanus Vaccination: Yes Review of Systems - Review of Systems Notes: REVIEW OF SYSTEMS: CONSTITUTIONAL : Denies fever, chills, or sweats. Denies recent illness. EENT: Denies eye, ear, throat, or mouth pain or symptoms. Denies nasal or sinus congestion or discharge. Denies throat, tongue, or mouth swelling or difficulty swallowing. CARDIOVASCULAR: Denies chest pain. Denies palpitations or racing or irregular heart beat. Denies ankle edema. RESPIRATORY: Denies cough, cold, or chest congestion. Denies shortness of breath, difficulty breathing, or wheezing. GASTROINTESTINAL: Denies abdominal pain or distention. Denies nausea, vomiting , or diarrhea. Denies blood in vomitus, stools, or per rectum. Denies black, tarry stools. Denies constipation. GENITOURINARY: Denies difficulty urinating, painful urination, burning, frequency, blood in urine, or discharge. MUSCULOSKELETAL: Admits to body aches neck pain SKIN: Denies rash, lesions or sores. HEMATOLOGIC : Denies easy bruising or bleeding. LYMPHATIC: Denies swollen, enlarged glands. NEUROLOGICAL: Admits to headache PSYCHIATRIC: Denies anxiety or stress. Denies depression, suicidal ideation, or homicidal ideation. ALL OTHER SYSTEMS REVIEWED AND NEGATIVE. Dictation was performed using [employer] voice recognition software PHYSICAL EXAMINATION: GENERAL: Well-appearing, well-nourished and in no acute distress. Patient does not appear to be in any distress HEAD: Atraumatic, normocephalic. EYES: Pupils equal round and reactive to light, extraocular movements intact, sclera anicteric, conjunctiva are normal. ENT: Nares patent, oropharynx clear without exudates. Moist mucous membranes. NECK: Normal range of motion, supple without lymphadenopathy LUNGS: Breath sounds clear to auscultation bilaterally and equal. No wheezes rales or rhonchi. HEART: Regular rate and rhythm without murmurs ABDOMEN: Soft, nontender, nondistended abdomen. No guarding, no rebound. No masses appreciated. Musculoskeletal: Normal range of motion, no pitting or edema. No cyanosis. Tenderness with range of motion NEUROLOGICAL: Cranial nerves grossly intact. Normal speech, normal gait. Normal sensory, motor exams PSYCH: Normal mood, normal affect. SKIN: Warm, Dry, normal turgor, no rashes or lesions noted. Physical Exam - Vital signs Vitals: Temp Pulse Resp BP Pulse Ox 100.2 F 92 H 20 134/88 H 98 11/14/17 16:17 11/14/17 16:17 11/14/17 16:17 11/14/17 16:17 11/14/17 16:17 Course - Re-evaluation Re-evalutation: 11/15/17 00:01 Patient's presentation is most consistent with viral meningitis, he does have headache neck pain back pain, lab work noted no significant abnormalities, a lumbar puncture was performed after CT head which again noted no significant abnormality, therefore I do not believe this is bacterial meningitis but may in fact be viral. Patient will be discharged with extremely close follow-up and return precautions he states he understands and will return if there are any other concerns After performing a Medical Screening Examination, I estimate there is LOW risk for ACUTE GLAUCOMA, TEMPORAL ARTERITIS, BACTERIAL MENINGITIS, INTRACRANIAL HEMORRHAGE, or ISCHEMIC STROKE thus I consider the discharge disposition reasonable. I have reevaluated this patient multiple times and no significant life threatening changes are noted. The patient and I have discussed the diagnosis and risks, and we agree with discharging home with close follow-up with the understanding that symptoms and presentations can change. We also discussed returning to the Emergency Department immediately if new or worsening symptoms occur. We have discussed the symptoms which are most concerning (e.g., changing or worsening symptoms, new numbness or weakness, vomiting, fever) that necessitate immediate return. 11/15/17 00:02 - Vital Signs Vital signs: Temp Pulse Resp BP Pulse Ox 99.1 F 92 H 19 132/89 H 99 11/14/17 19:11 11/14/17 16:17 11/14/17 21:43 11/14/17 21:43 11/14/17 21:43 - Laboratory Result Diagrams: 11/14/17 16:37 11/14/17 16:37 Laboratory results interpreted by me: 11/14/17 11/14/17 11/14/17 16:37 16:37 16:37 RBC 5.57 H Hgb 17.3 H RDW 14.3 H Seg Neutrophils % 85.4 H Lymphocytes % 8.1 L Sodium 145.1 H Calcium 10.7 H Total Bilirubin 1.9 H Alkaline Phosphatase 53 L Urine Urobilinogen 2.0 H - Diagnostic Test Radiology reviewed: Image reviewed, Reports reviewed - CT head without contrast notes no significant abnormality Procedures - Lumbar Puncture Lumbar puncture Time completed: 21:00 Consent obtained: Yes Lumbar puncture pre-procedure: Sterile PPE donned, Betadine prep applied, Sterile drapes applied Patient position: Sitting Needle size: 22 Lumbar puncture location: L4-l5 Anesthetic type: 1% Lidocaine mL's of anesthetic: 10 Amount/type of drainage: 4ml clear Number of attempts: 2 Complications: No Discharge - Discharge Clinical Impression: Viral meningitis, unspecified, Body aches Condition: Stable Disposition: HOME, SELF-CARE Instructions: Fever ([facility]), Viral Meningitis ([facility]) Prescriptions: Hydrocodone/Acetaminophen [[place] 5-325 mg Tablet] 1 tab PO Q6 #10 tablet Forms: Parent Work Note, Return to School, Return to Work Referrals: ALFA ESPITIA NP [Primary Care Provider] - Follow up tomorrow
[2017-11-14 21:53] VITALS: BP 132/89
== END 2017-11-14 21:54 | disposition home or self-care (01) ==
LOC: ER 16:11
PROC: 009U3ZX Drainage of Spinal Canal, Percutaneous Approach, Diagnostic (ICD-10-PCS; principal; 2017-11-14)
DX: A87.9 Viral meningitis, unspecified (principal); M54.9 Dorsalgia, unspecified; M79.1 Myalgia; F17.210 Nicotine dependence, cigarettes, uncomplicated
CPT/HCPCS: 99284; 96372; 96374; 36415; 87070 ×2; 87205; 87880; 83690; 85025; 89050; 86308; 80053; 81001; 87491; 87591; 74022; 70450; 62270; J2250; S0119; J3010

== ENCOUNTER 2018-05-06 08:14 | Emergency (ER) | payer OTHER, MEDICAID ==
[2018-05-06] MEDS ORDERED: KETOROLAC TROMETHAMINE INJ/PF 30 MG/1 ML SDV IV ONE (09:01)
[2018-05-06] MEDS ORDERED: METOCLOPRAMIDE HCL INJ/PF 10 MG/2 ML SDV IV ONE (09:01)
--- NOTE | 2018-05-06 09:01 | ER Document Report ---
ED Headache - General Chief Complaint: Headache <24 hrs old Stated Complaint: HEADACHE Time Seen by Provider: 05/06/18 08:51 Mode of Arrival: Ambulatory Information source: Patient - Headache TRAVEL OUTSIDE OF THE [place] IN LAST 30 DAYS: No - HPI Patient complains to provider of: Other Patient reports: Other - Headache which developed 3 days ago after having donated plasma. He notes that since his headache started it has been mostly on the left side of his forehead and is continued to throb intermittently since starting. He is not taking anything to try and help with it. He says he has had occasional headaches in the past as frequently as once every few months but is not had any recently. Denies any other medical problems, denies any surgical history, denies any chest pain shortness of breath lightheadedness fevers rashes abdominal pain diarrhea constipation or dysuria. He does note that he has had some cramping in his left hand - Related Data Allergies/Adverse Reactions: bleach Allergy (Uncoded 05/06/18 08:16) Past Medical History - General Information source: Patient - Social History Smoking Status: Unknown if Ever Smoked Family History: Reviewed & Not Pertinent Patient has suicidal ideation: No Patient has homicidal ideation: No Renal/ Medical History: Denies: Hx Peritoneal Dialysis Psychiatric Medical History: Reports: Hx Depression Past Surgical History: Reports: Other - Facial plastic surgery - Immunizations Immunizations up to date: Yes Hx Diphtheria, Pertussis, Tetanus Vaccination: Yes Review of Systems - Review of Systems -: Yes All other systems reviewed and negative Physical Exam - Vital signs Vitals: Temp Pulse Resp BP Pulse Ox 97.8 F 62 16 134/96 H 99 05/06/18 08:58 05/06/18 08:58 05/06/18 08:58 05/06/18 08:58 05/06/18 08:58 - General General appearance: Appears well In distress: None - HEENT Head: Normocephalic, Atraumatic Eyes: Normal Pupils: PERRL - Respiratory Respiratory status: No respiratory distress Chest status: Nontender Breath sounds: Normal Chest palpation: Normal - Cardiovascular Rhythm: Regular Heart sounds: Normal auscultation Murmur: No - Abdominal Inspection: Normal Distension: No distension Bowel sounds: Normal Tenderness: Nontender Organomegaly: No organomegaly - Back Back: Normal, Nontender - Extremities General upper extremity: Normal inspection, Nontender, Normal color, Normal ROM , Normal temperature General lower extremity: Normal inspection, Nontender, Normal color, Normal ROM , Normal temperature, Normal weight bearing. No: Narendra's sign - Neurological Neuro grossly intact: Yes Cognition: Normal Orientation: AAOx4 Malissa Coma Scale Eye Opening: Spontaneous Malissa Coma Scale Verbal: Oriented [place] Coma Scale Motor: Obeys Commands Malissa Coma Scale Total: 15 Speech: Normal Motor strength normal: LUE, RUE, LLE, RLE Sensory: Normal - Psychological Associated symptoms: Normal affect, Normal mood Course - Re-evaluation Re-evalutation: 22-year-old man presents for evaluation of left-sided headache since donating plasma a few days ago. His examination is benign neurologically however he does not have a history of headache in the past this is been persistent. She has not had any imaging before and does have this new headache we will pursue workup with basic labs CT of the head symptom control with Toradol and nausea medicine with reassessment. Was contacted by radiologist, she notes concerned that there may be a hemorrhage in the right temporal region. As there is some concern for potential hemorrhage as a result of an AVM we discussed further imaging and agreed upon an MRI of the brain with an MRA and attention to the [place]. Following administration of Toradol and Reglan patient's headache had resolved. MRI demonstrates what appears to be a generous venous portion of the right temporal region which is not associated with any hemorrhage edema or other abnormality. Contacted on-call radiologist to review films together, she notes that she agrees with MRI reads as are that the patient likely has a simple venous anomaly which does not require further investigation or workup. The patient remains neurologically intact at this time. We did discuss the findings. He and his family expressed relief, current plan will be for them to undergo discharge with return precautions and conservative management of his headache. - Vital Signs Vital signs: Temp Pulse Resp BP Pulse Ox 97.8 F 62 16 134/96 H 99 05/06/18 08:58 05/06/18 08:58 05/06/18 08:58 05/06/18 08:58 05/06/18 08:58 - Laboratory Result Diagrams: 05/06/18 10:12 05/06/18 10:12 Laboratory results interpreted by me: 05/06/18 05/06/18 10:12 10:12 Lymphocytes % 45.8 H Total Bilirubin 1.4 H Discharge - Discharge Clinical Impression: Venous anomaly Headache Qualifiers: Headache type: unspecified Headache chronicity pattern: unspecified pattern Intractability: not intractable Qualified Code(s): R51 - Headache Condition: Good Disposition: HOME, SELF-CARE Instructions: Headache ([facility]) Additional Instructions: You were seen today in the emergency department for your headache. You had an evaluation including a CAT scan of your head, an MRI of your brain as well as of the blood vessels. It appears that you have a venous anomaly in your brain which is not the cause of your headache. You should see your doctor this week and let them know about this so they can follow you. Return for worsening headache, numbness or weakness, fevers or chills or other symptoms. Prescriptions: Acetaminophen [Tylenol 325 mg Tablet] 975 mg PO Q6HP PRN #60 tablet PRN Reason: Butalb/Acetaminophen/Caffeine [Fioricet 50-300-40 mg Capsule] 1 cap PO Q8H PRN # 12 cap PRN Reason: Ibuprofen [Motrin 600 Mg Tablet] 600 mg PO TID #15 tablet Forms: Parent Work Note, Return to Work Referrals: ALFA ESPITIA NP [NURSE PRACTITIONER] - Follow up as needed
--- NOTE | 2018-05-06 09:57 | RADIOLOGY REPORT (SQ) ---
EXAM DESCRIPTION: CT HEAD WITHOUT COMPLETED DATE/TIME: 05/06/2018 9:32 am REASON FOR STUDY: headache left hand numbness, left arm weakness COMPARISON: None. TECHNIQUE: Axial images acquired through the brain without intravenous contrast. Images reviewed wi th bone, brain and subdural windows. Additional sagittal and coronal reconstructions were generated. Images stored on PACS. All CT scanners at this facility use dose modulation, iterative reconstruction, and/or weight based d osing when appropriate to reduce radiation dose to as low as reasonably achievable (ALARA). [facility]: Dose Right [facility]: CareDose [facility]: Dose Right [facility]: Teradose 4D [facility]: Smart [email or web address] RADIATION DOSE: CT Rad equipment meets quality standard of care and radiation dose reduction techniq ues were employed. CTDIvol: 53.2 mGy. DLP: 1097 mGy-cm. mGy. LIMITATIONS: None. FINDINGS: VENTRICLES: Normal size and contour. CEREBRUM: No masses. No hemorrhage. No midline shift. No evidence for acute infarction. Normal gra y/white matter differentiation. No areas of low density in the white matter. CEREBELLUM: No masses. No hemorrhage. No alteration of density. No evidence for acute infarction. EXTRAAXIAL SPACES: Along the right sylvian fissure, a linear bandlike area of increased attenuation i s present worrisome for hemorrhage. This could be subarachnoid hemorrhage or could be a thrombosed v essel. This finding was called to Dr. Holman 0930 hours 05/06/2018. ORBITS AND GLOBE: No intra- or extraconal masses. Normal contour of globe without masses. CALVARIUM: No fracture. PARANASAL SINUSES: No fluid or mucosal thickening. SOFT TISSUES: No mass or hematoma. OTHER: No other significant finding. IMPRESSION: Right sylvian fissure bandlike increased attenuation axial image 16 through 18, worrisom e for either a thrombosed vessel or small amount of subarachnoid hemorrhage. No acute brain parenchymal abnormality. EVIDENCE OF ACUTE STROKE: NO. COMMENT: Pertinent findings on the imaging study reported as a CRITICAL RESULT to CYRUS HOLMAN MD at09:30 on 05/06/2018. Category of Critical Result: Acute hemorrhage right sylvian fissure Quality ID # [id number]: Final reports with documentation of one or more dose reduction techniques (e.g., Au tomated exposure control, adjustment of the mA and/or kV according to patient size, use of iterative reconstruction technique) TECHNICAL DOCUMENTATION: JOB ID: [id number] [employer]- All Rights Reserved Reading location - IP/workstation name: [email or web address]
[2018-05-06 10:35] LABS: ABSOLUTE BASOPHILS # (AUTO) 0.1 10^3/uL (0.0-0.2); ABSOLUTE EOSINOPHILS # (AUTO) 0.1 10^3/uL (0.0-0.6); ABSOLUTE LYMPHOCYTES (AUTO) 3.4 10^3/uL (0.5-4.7); ABSOLUTE MONOCYTES (AUTO) 0.6 10^3/uL (0.1-1.4); ABSOLUTE NEUT (AUTO) 3.2 10^3/uL (1.7-8.2); EOSINOPHILS % (AUTO) 1.9 % (0-6); HEMATOCRIT 47.2 % (37.9-51.0); HEMOGLOBIN 16.6 g/dL (13.5-17.0); LYMPHOCYTES % (AUTO) 45.8 % (13-45); MEAN CORPUSCULAR HEMOGLOBIN 31.3 pg (27.0-33.4); MEAN CORPUSCULAR HGB CONC 35.2 g/dL (32.0-36.0); MEAN CORPUSCULAR VOLUME 89 fl (80-97); MONOCYTES % (AUTO) 7.5 % (3-13); PLATELET COUNT 249 10^3/uL (150-450); RED BLOOD COUNT 5.32 10^6/uL (4.35-5.55); RED CELL DISTRIBUTION WIDTH 13.6 % (11.5-14.0); SEGMENTED NEUTROPHILS % (AUTO) 43.8 % (42-78); TOTAL CELLS COUNTED % (AUTO) 100 %; WHITE BLOOD COUNT 7.4 10^3/uL (4.0-10.5)
[2018-05-06 10:41] LABS: INTERNATIONAL RATION (INR) 0.95; PROTHROMBIN TIME 13.2 SEC (11.4-15.4)
[2018-05-06 10:42] LABS: PARTIAL THROMBOPLASTIN TIME 29.2 SEC (23.5-35.8)
[2018-05-06 10:54] LABS: ALANINE AMINOTRANSFERASE 36 U/L (21-72); ALBUMIN 4.8 g/dL (3.5-5.0); ALKALINE PHOSPHATASE 54 U/L (38-126); ANION GAP 10 (5-19); ASPARTATE AMINO TRANSFERASE 36 U/L (17-59); BILIRUBIN,DIRECT 0.2 mg/dL (0.0-0.4); BILIRUBIN,TOTAL 1.4 mg/dL (0.2-1.3); BLOOD UREA NITROGEN 13 mg/dL (7-20); CARBON DIOXIDE 30 mmol/L (22-30); CHLORIDE 100 mmol/L (98-107); GLUCOSE 96 mg/dL (75-110); POTASSIUM 4.1 mmol/L (3.6-5.0); SODIUM 140.3 mmol/L (137-145); TOTAL PROTEIN 7.7 g/dL (6.3-8.2)
--- NOTE | 2018-05-06 12:25 | RADIOLOGY REPORT (SQ) ---
EXAM DESCRIPTION: MRI HEAD COMBO; MRA HEAD WITHOUT COMPLETED DATE/TIME: 05/06/2018 12:01 pm REASON FOR STUDY: bleeding in brain, attention to [place]; Bleeding in brain, attention to [place] COMPARISON: CT brain, 05/06/2018 TECHNIQUE: Multiplanar imaging includes non-contrasted T1, T2, FLAIR, diffusion with ADC map and Pos t gadolinium contrast T1 sequences. Images stored on PACS. MRA [place]: TECHNIQUE: Axial 3-D [id number] acquisition imaging performed through the brain in the area of th e [place]. Images reformatted using 3-D MIPS. CONTRAST TYPE AND DOSE: 20 mL Dotarem. RENAL FUNCTION: None required. The patient is less than 50 years old. LIMITATIONS: None. FINDINGS: ANATOMY: There is a large contrast-enhancing developmental venous anomaly of the right tem poral lobe at the site of queried hemorrhage seen on prior CT. Pituitary fossa normal. CSF SPACES: Normal in size and contour. No hemorrhage. CEREBRUM: Sulci and gyri normal in size and contour. Normal white matter signal on FLAIR imaging. No evidence of hemorrhage, mass, or extraaxial fluid collection. No abnormal enhancement post contrast. POSTERIOR FOSSA: No signal alteration. No hemorrhage. No edema, masses, or mass effect. Internal arturo tory canals, cerebello-pontine angles, mastoids normal. No enhancing lesions. No abnormal enhancement post contrast. DIFFUSION IMAGING: Negative for acute or sub-acute infarction. ORBITS: No masses. Globes normal. PARANASAL SINUSES: No fluid levels. Mucosa normal. OTHER: No other significant finding. MRA [place]: SOURCE IMAGES: No unexpected findings on source images. No large masses. 3-D MIP: No aneurysm. No occlusions. No significant stenosis. OTHER: No other significant finding. IMPRESSION: 1. 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 2. No acute MRI abnormality of the brain. No evidence of hemorrhage. 3. Normal intracranial arterial vasculature. EVIDENCE OF ACUTE STROKE: NO. TECHNICAL DOCUMENTATION: JOB ID: [id number] [employer]- All Rights Reserved Reading location - IP/workstation name: [id number]
--- NOTE | 2018-05-06 12:25 | RADIOLOGY REPORT (SQ) ---
EXAM DESCRIPTION: MRI HEAD COMBO; MRA HEAD WITHOUT COMPLETED DATE/TIME: 05/06/2018 12:01 pm REASON FOR STUDY: bleeding in brain, attention to [place]; Bleeding in brain, attention to [place] COMPARISON: CT brain, 05/06/2018 TECHNIQUE: Multiplanar imaging includes non-contrasted T1, T2, FLAIR, diffusion with ADC map and Pos t gadolinium contrast T1 sequences. Images stored on PACS. MRA [place]: TECHNIQUE: Axial 3-D [id number] acquisition imaging performed through the brain in the area of th e [place]. Images reformatted using 3-D MIPS. CONTRAST TYPE AND DOSE: 20 mL Dotarem. RENAL FUNCTION: None required. The patient is less than 50 years old. LIMITATIONS: None. FINDINGS: ANATOMY: There is a large contrast-enhancing developmental venous anomaly of the right tem poral lobe at the site of queried hemorrhage seen on prior CT. Pituitary fossa normal. CSF SPACES: Normal in size and contour. No hemorrhage. CEREBRUM: Sulci and gyri normal in size and contour. Normal white matter signal on FLAIR imaging. No evidence of hemorrhage, mass, or extraaxial fluid collection. No abnormal enhancement post contrast. POSTERIOR FOSSA: No signal alteration. No hemorrhage. No edema, masses, or mass effect. Internal arturo tory canals, cerebello-pontine angles, mastoids normal. No enhancing lesions. No abnormal enhancement post contrast. DIFFUSION IMAGING: Negative for acute or sub-acute infarction. ORBITS: No masses. Globes normal. PARANASAL SINUSES: No fluid levels. Mucosa normal. OTHER: No other significant finding. MRA [place]: SOURCE IMAGES: No unexpected findings on source images. No large masses. 3-D MIP: No aneurysm. No occlusions. No significant stenosis. OTHER: No other significant finding. IMPRESSION: 1. 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 2. No acute MRI abnormality of the brain. No evidence of hemorrhage. 3. Normal intracranial arterial vasculature. EVIDENCE OF ACUTE STROKE: NO. TECHNICAL DOCUMENTATION: JOB ID: [id number] [employer]- All Rights Reserved Reading location - IP/workstation name: [email or web address]
[2018-05-06 14:27] VITALS: BP 129/86
== END 2018-05-06 14:27 | disposition home or self-care (01) ==
LOC: ER 08:14
DX: R51 Headache (principal); Q28.3 Other malformations of cerebral vessels; R25.2 Cramp and spasm; Z91.048 Other nonmedicinal substance allergy status
CPT/HCPCS: 99284; 96374; 96375; 36415; 85025; 85610; 85730; 80053; 70553; 70544; 70450; A9576; J1885; J2765

== ENCOUNTER 2018-10-22 09:08 | Emergency (ER) | payer MEDICAID, OTHER ==
[2018-10-22 09:36] VITALS: BP 153/80
[2018-10-22] MEDS ORDERED: DIPH/PERTUSS(ACELL)/TETANUS VAC/PF 0.5 ML SYR (>=10YO) IM ONE (09:55)
[2018-10-22] MEDS ORDERED: IBUPROFEN 800 MG TABLET PO ONE (09:55)
--- NOTE | 2018-10-22 09:58 | ER Document Report ---
HPI - HPI Patient complains to provider of: Left arm laceration Time Seen by Provider: 10/22/18 09:44 Onset: Other - 2 days ago Onset/Duration: Persistent Pain Level: 5 Context: Patient states that he was attempting to [place] his dog got loose and cut his arm on a metal fence 2 days ago. Patient complains of continued left arm pain. Associated Symptoms: Other - Left arm laceration Exacerbated by: Movement Relieved by: Denies Similar symptoms previously: No Recently seen / treated by doctor: No - ROS ROS below otherwise negative: Yes Systems Reviewed and Negative: Yes All other systems reviewed and negative - CONSTITUTIONAL Constitutional: DENIES: Fever, Chills - NEURO Neurology: DENIES: Weakness - GASTROINTESTINAL Gastrointestinal: DENIES: Nausea - MUSCULOSKELETAL Musculoskeletal: REPORTS: Extremity pain - DERM Skin Problems: Laceration Past Medical History - General Information source: Patient - Social History Smoking Status: Current Every Day Smoker Smoking Education Provided: Yes Frequency of alcohol use: None Drug Abuse: None Occupation: food beverage manager Lives with: Family Family History: Reviewed & Not Pertinent Renal/ Medical History: Denies: Hx Peritoneal Dialysis Psychiatric Medical History: Reports: Hx Depression Past Surgical History: Reports: Other - Facial plastic surgery - Immunizations Immunizations up to date: Yes Hx Diphtheria, Pertussis, Tetanus Vaccination: Yes Vertical Provider Document - CONSTITUTIONAL Agree With Documented VS: Yes Exam Limitations: No Limitations General Appearance: WD/WN, No Apparent Distress - INFECTION CONTROL TRAVEL OUTSIDE OF THE [place] IN LAST 30 DAYS: No - HEENT HEENT: Atraumatic, Normocephalic - NECK Neck: Normal Inspection - RESPIRATORY Respiratory: No Respiratory Distress - CARDIOVASCULAR Pulses: Normal: Radial - MUSCULOSKELETAL/EXTREMETIES Musculoskeletal/Extremeties: MAEW, FROM - NEURO Level of Consciousness: Awake, Alert, Appropriate Motor/Sensory: No Motor Deficit - DERM Integumentary: Warm, Dry, Laceration - 2 cm laceration to left upper arm Course - Re-evaluation Re-evalutation: 10/22/18 09:56 Patient with a 3-day-old laceration to left arm. No surrounding erythema. Area is mildly tender to touch. No concern for foreign body at this time. No concern for cellulitis. Patient educated on timeliness of presentation to the ER for wound closure in the future. - Vital Signs Vital signs: Temp Pulse Resp BP Pulse Ox 98.6 F 52 L 18 153/80 H 100 05/22/19 09:35 10/22/18 09:35 10/22/18 09:35 10/22/18 09:35 10/22/18 09:35 Discharge - Discharge Clinical Impression: Arm laceration Qualifiers: Encounter type: initial encounter Laterality: left Qualified Code(s): S41.112A - Laceration without foreign body of left upper arm, initial encounter Condition: Stable Disposition: HOME, SELF-CARE Instructions: Dressing Instructions for Open Wounds ([facility]), Non-Sutured Laceration ([facility]), Tetanus Immunization Given ([facility]) Additional Instructions: Keep wound clean and covered until it heals. Monitor for any signs of infection such as increased pain, fever, redness or purulent drainage. Return as needed for any new or worsening symptoms Follow-up with your primary doctor for recheck Prescriptions: Mupirocin [Bactroban 2% Ointment 22 gm] 1 applic TP TID #22 gm Naproxen [Naprosyn 250 Nmg Tablet] 1 tab PO BID #14 tablet Forms: Smoking Cessation Education, Return to Work Referrals: [facility] [Provider Group] - Follow up as needed
[2018-10-22] MEDS ORDERED: ACETAMINOPHEN 325 MG TABLET PO ONE (10:09)
== END 2018-10-22 10:30 | disposition home or self-care (01) ==
LOC: ER 09:08
DX: S41.112A Laceration without foreign body of left upper arm, initial encounter (principal); M79.602 Pain in left arm; W45.8XXA Other foreign body or object entering through skin, initial encounter; Y93.K1 Activity, walking an animal
CPT/HCPCS: 99282; 90471; 90715; J3490

== ENCOUNTER 2019-03-01 01:43 | Emergency (ER) | payer MEDICAID, OTHER ==
[2019-03-01] MEDS ORDERED: ACETAMINOPHEN 325 MG TABLET PO ONE (03:13)
--- NOTE | 2019-03-01 04:20 | RADIOLOGY REPORT (SQ) ---
EXAM DESCRIPTION: XR HAND 3 OR MORE VIEWS COMPLETED DATE/TME: 03/01/2019 03:12 CLINICAL HISTORY: 23 years, Male, pain after falling, unable to straighten pinky COMPARISON: None. NUMBER OF VIEWS: Three TECHNIQUE: Three views of the right hand LIMITATIONS: None. FINDINGS: There is no acute fracture or dislocation. The joint spaces are preserved. No radiopaque foreign body. IMPRESSION: No acute fracture or dislocation copyright 2010 [employer]- All Rights Reserved
--- NOTE | 2019-03-01 05:50 | ER Document Report ---
HPI - HPI Time Seen by Provider: 03/01/19 05:28 Pain Level: 5 Context: Patient is a 23-year-old male that comes to the emergency department for chief complaint of injury to the right pinky finger. He states that he caught himself from falling with his right hand and his right pinky jammed in the dirt. He states now he cannot extend his pinky finger. He states the area does hurt but there is no severe pain. He denies any other symptoms. He is left-handed. No open wounds. He denies any daily medications or past medical history. - REPRODUCTIVE Reproductive: DENIES: : - MUSCULOSKELETAL Musculoskeletal: REPORTS: Extremity pain Past Medical History - General Information source: Patient - Social History Smoking Status: Current Every Day Smoker Frequency of alcohol use: Social Drug Abuse: None Lives with: Family Family History: Reviewed & Not Pertinent Patient has suicidal ideation: No Patient has homicidal ideation: No Renal/ Medical History: Denies: Hx Peritoneal Dialysis Psychiatric Medical History: Reports: Hx Depression Past Surgical History: Reports: Other - Facial plastic surgery - Immunizations Immunizations up to date: Yes Hx Diphtheria, Pertussis, Tetanus Vaccination: Yes Vertical Provider Document - CONSTITUTIONAL General Appearance: WD/WN, No Apparent Distress - Sleeping but easily aroused - INFECTION CONTROL TRAVEL OUTSIDE OF THE [place] IN LAST 30 DAYS: No - HEENT HEENT: Atraumatic, Normocephalic - NECK Neck: Normal Inspection - RESPIRATORY Respiratory: Breath Sounds Normal, No Respiratory Distress - CARDIOVASCULAR Cardiovascular: Regular Rate, Regular Rhythm - GI/ABDOMEN Gastrointestinal: Abdomen Soft, Abdomen Non-Tender - BACK Back: Normal Inspection - MUSCULOSKELETAL/EXTREMETIES Musculoskeletal/Extremeties: MAEW. negative: FROM - There is mild pain with palpation over the right fifth digit near the end of the finger, no noted soft tissue swelling, patient is able to flex but he is unable to extend at the DIP joint. Patient can flex normally and extend normally at the PIP joint and MCP. Normal capillary refill and sensation. Hand examination is completely normal otherwise. - NEURO Level of Consciousness: Awake, Alert, Appropriate Motor/Sensory: No Motor Deficit, No Sensory Deficit - DERM Integumentary: Warm, No Rash Course - Re-evaluation Re-evalutation: Patient's hand examination is very suggestive of mallet finger. X-ray shows no fracture or concerning finding. No neurovascular deficits. Patient will be placed in a splint that extends the DIP joint, this was placed in slight hyperextension, patient will follow-up with orthopedics for additional management. I stressed the importance that he does not take the splint off or he may reset the clock for healing and have additional complications. Discussed with Dr. Burton. Patient states understanding and agreement. - Vital Signs Vital signs: Temp Pulse Resp BP Pulse Ox 98.4 F 82 16 136/71 H 98 03/01/19 02:06 03/01/19 02:06 03/01/19 02:06 03/01/19 02:06 03/01/19 02:06 Procedures - Immobilization right fifth digit Pre-Proc Neuro Vasc Exam: Normal Immobilizer type: Finger splint (Static) - Right fifth digit splinted in hyperextension using aluminum. Performed by: PCT Post-Proc Neuro Vasc Exam: Normal Alignment checked and good: Yes Discharge - Discharge Clinical Impression: Mallet finger of right hand Finger injury Qualifiers: Encounter type: initial encounter Laterality: right Qualified Code(s): S69.91XA - Unspecified injury of right wrist, hand and finger(s), initial encounter Condition: Stable Disposition: HOME, SELF-CARE Additional Instructions: There is no fracture on x-ray, however your exam shows that you have a mallet finger deformity from the injury. This is an injury to the tendons at the joint towards the end of the your finger that are supposed to extend your finger. It is extremely important that you wear the splint and do not take the splint off at any point in time for this to heal. If you take this off it will take longer to heal and may heal incorrectly. Please follow-up with the orthopedic referral listed below, call the office and set up your appointment for additional treatment and management. Take the anti-inflammatory as prescribed Prescriptions: Naproxen 500 mg PO BID PRN #20 tablet PRN Reason: Referrals: TWILA GUTIERREZ DO [ACTIVE STAFF] - Follow up in 3-5 days
[2019-03-01] MEDS ORDERED: NAPROXEN 250 MG TABLET PO ONE (05:51)
[2019-03-01] MEDS ORDERED: NAPROXEN 250 MG TABLET ONE (06:05)
[2019-03-01 06:14] VITALS: BP 132/88
== END 2019-03-01 06:14 | disposition home or self-care (01) ==
LOC: ER 01:43
PROC: 2W3JX1Z Immobilization of Right Finger using Splint (ICD-10-PCS; principal; 2019-03-01)
DX: S69.91XA Unspecified injury of right wrist, hand and finger(s), initial encounter (principal); M20.011 Mallet finger of right finger(s); W22.8XXA Striking against or struck by other objects, initial encounter; F17.200 Nicotine dependence, unspecified, uncomplicated
CPT/HCPCS: 99283

== ENCOUNTER 2020-02-11 21:32 | Emergency (ER) | payer OTHER ==
[2020-02-12] MEDS ORDERED: DIPH/PERTUSS(ACELL)/TETANUS VAC/PF 0.5 ML SYR (>=10YO) IM ONE (07:51)
[2020-02-12] MEDS ORDERED: LIDOCAINE 1% INJ-PF (10 MG/ML) 30 ML SDV INJ ONE (07:52)
--- NOTE | 2020-02-12 08:35 | ER Document Report ---
Entered by ABILIO SCOTT SCRIBE 02/12/20 0745 Acting as scribe for:LADAN LAN MD ED Wound - General Chief Complaint: Laceration Stated Complaint: FACIAL INJURY/LIP INJURY Time Seen by Provider: 02/12/20 06:04 Mode of Arrival: Ambulatory Information source: Patient Notes: This 24 year old male patient with no significant past medical history presents to the ED today with complaints of laceration to his right upper lip that occurred around 1999 last night. Patient states that he was head butted while playing football and hit his lip on the top of the other person's head. Denies any neck pain, loss of consciousness, or dental fractures. Last tetanus unknown. TRAVEL OUTSIDE OF THE [place] IN LAST 30 DAYS: No - Related Data Allergies/Adverse Reactions: bleach Allergy (Uncoded 02/12/20 02:34) Past Medical History - General Information source: Patient, [facility] Records - Social History Smoking Status: Never Smoker Cigarette use (# per day): No Chew tobacco use (# tins/day): No Smoking Education Provided: No Frequency of alcohol use: None Drug Abuse: None Family History: Reviewed & Not Pertinent Patient has suicidal ideation: No Patient has homicidal ideation: No Psychiatric Medical History: Reports: Hx Depression Past Surgical History: Reports: Other - Facial plastic surgery - Immunizations Immunizations up to date: Yes Hx Diphtheria, Pertussis, Tetanus Vaccination: Yes Review of Systems - Review of Systems Constitutional: No symptoms reported EENT: No symptoms reported Cardiovascular: No symptoms reported Respiratory: No symptoms reported Gastrointestinal: No symptoms reported Genitourinary: No symptoms reported Male Genitourinary: No symptoms reported Musculoskeletal: See HPI. denies: Neck pain Skin: See HPI, Other - Lip laceration Hematologic/Lymphatic: No symptoms reported Neurological/Psychological: See HPI. denies: Lost consciousness -: Yes All other systems reviewed and negative Physical Exam - Vital signs Vitals: Temp Pulse Resp BP Pulse Ox 97.8 F 66 18 116/68 98 02/12/20 02:08 02/12/20 02:08 02/12/20 02:08 02/12/20 02:08 02/12/20 02:08 Interpretation: Normal - General General appearance: Alert In distress: None - HEENT Head: Normocephalic. No: Atraumatic Eyes: Normal Extraocular movements intact: Yes Pupils: PERRL Mouth/Lips: Laceration - 3 cm vertical laceration noted to right upper lip, no active bleeding. No: Dental fracture - Respiratory Respiratory status: No respiratory distress Chest status: Nontender Breath sounds: Normal Chest palpation: Normal - Cardiovascular Rhythm: Regular Heart sounds: Normal auscultation, S1 appreciated, S2 appreciated Murmur: No Friction rub: No Gallop: None auscultated - Abdominal Inspection: Normal Distension: No distension Bowel sounds: Normal Tenderness: Nontender - Abdomen soft Organomegaly: No organomegaly - Back Back: Normal, Nontender - Extremities General upper extremity: Normal inspection General lower extremity: Normal inspection. No: Edema - Neurological Neuro grossly intact: Yes Orientation: AAOx4 [place] Coma Scale Eye Opening: Spontaneous [place] Coma Scale Verbal: Oriented [place] Coma Scale Motor: Obeys Commands [place] Coma Scale Total: 15 - Psychological Associated symptoms: Normal affect, Normal mood - Skin Skin Temperature: Warm Skin Moisture: Dry Skin Color: Normal Course - Re-evaluation Re-evalutation: 02/12/20 08:31 Patient resting comfortably not showing any signs of distress at this time. - Vital Signs Vital signs: Temp Pulse Resp BP Pulse Ox 97.8 F 57 L 18 116/74 100 02/12/20 02:08 02/12/20 06:20 02/12/20 02:08 02/12/20 06:20 02/12/20 06:20 02/12/20 08:32 Vital signs stable Procedures - Laceration/Wound Repair Right Upper Face Time completed: 08:25 Wound length (cm): 3 Wound's Depth, Shape: Superficial, Linear - right upper lip Laceration pre-procedure: Sterile PPE donned, Sterile drapes applied, Shur-Clens applied Anesthetic type: 1% Lidocaine Wound explored: Clean Wound Repaired With: Sutures Suture Size/Type: 5:0, Vicryl Number of Sutures: 6 Layer Closure?: No Post-procedure wound care: Sterile dressing applied Post-procedure NV exam normal: Yes Complications: No Discharge - Discharge Clinical Impression: Laceration of lip Condition: Stable Disposition: HOME, SELF-CARE Instructions: Tetanus Immunization Given ([facility]), Prophylactic Antibiotic ([facility]), Laceration Care ([facility]) Additional Instructions: Sutures out in 5 to 7 days. Prescriptions: Cephalexin Monohydrate [Keflex 500 mg Capsule] 500 mg PO BID 5 Days #10 capsule I personally performed the services described in the documentation, reviewed and edited the documentation which was dictated to the scribe in my presence, and it accurately records my words and actions.
[2020-02-12 08:48] VITALS: BP 126/76
== END 2020-02-12 08:48 | disposition home or self-care (01) ==
LOC: ER 21:32
PROC: 0CQ0XZZ Repair Upper Lip, External Approach (ICD-10-PCS; principal; 2020-02-11)
DX: S01.511A Laceration without foreign body of lip, initial encounter (principal); W51.XXXA Accidental striking against or bumped into by another person, initial encounter; Y93.61 Activity, american tackle football
CPT/HCPCS: 99283; 90471; 90715; 12013; J3490